=== PATIENT | male | born 1955 | race Caucasian/White ===

== ENCOUNTER 2023-04-22 02:05 | Inpatient (IN) | payer OTHER, SELFPAY ==
[2023-04-22] MEDS ORDERED: FENTANYL CITR 100 MCG/2 ML ONE (03:23)
[2023-04-22 04:11] LABS: Absolute Lymphocytes (CBC) 4.9 K/uL (0.7-4.9); Hematocrit 35.8 % (39.6-49.0); Lymphocytes % 36.7 % (15.3-44.8); MCV 92.5 fL (80-100); MPV 6.8 fL (7.6-11.3); RBC Red Blood Cell Count 3.88 M/uL (4.33-5.43)
[2023-04-22 05:00] LABS: Potassium 3.9 mEq/L (3.5-5.1)
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
[2023-04-22] MEDS ORDERED: NA CHLORIDE 0.9% 1,000 ML ONE (06:30)
[2023-04-22 07:55] LABS: Specific Gravity 1.024 (1.005-1.030); Urine Bacteria None Seen /HPF (<20); Urine Bilirubin NEGATIVE (Negative); Urine Blood Negative (Negative); Urine Clarity Clear (Clear); Urine Color Colorless (Yellow); Urine Glucose NEGATIVE (Negative); Urine Protein NEGATIVE (Negative); Urine RBC <5 /HPF (None Seen); Urine Urobilinogen Normal (Normal); Urine pH 7.5 (5.0-7.0)
[2023-04-22] MEDS ORDERED: ZIPRASIDONE MESYLA 20 MG/VIAL IM ONE (09:52)
[2023-04-22] MEDS ORDERED: WATER FOR INJ,STERILE 10 ML ONE (09:53)
[2023-04-22] MEDS ORDERED: ONDANSETRON 4 MG/2 ML VIAL IV PRN (09:55)
[2023-04-22] MEDS ORDERED: LABETALOL 20 MG/4ML SYRINGE IV PRN (09:55)
[2023-04-22] MEDS: NICOTINE 21 MG/PAT TD SCH (10:00)
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
[2023-04-22] MEDS ORDERED: LORazepam 2 MG/ML VIAL ONE (11:51)
[2023-04-22 13:18] LABS: Magnesium 1.8 mg/dL (1.6-2.4); Phosphorus 3.2 mg/dL (2.5-4.9); Thyroid Stimulating Hormone 2.57 uIU/mL (0.358-3.740)
--- NOTE | 2023-04-22 13:51 | RAD REPORT ---
"EXAM DESCRIPTION: CT Head and Cervical Spine Without Intravenous Contrast CLINICAL HISTORY: The patient is 67 years old and is Male; TRAUMA TECHNIQUE: Axial computed tomography images of the head/brain and cervical spine without intravenous contrast. Sagittal and coronal reformatted images were created and reviewed. This CT exam was pe rformed using one or more of the following dose reduction techniques: automated exposure control, a djustment of the mA and/or kV according to patient size, and/or use of iterative reconstruction techn ique. COMPARISON: No relevant prior studies available. FINDINGS: Brain: Mild nonspecific white matter changes likely related to chronic microvascular isc hemic disease. Mild cerebral atrophy. No hemorrhage. Ventricles: Unremarkable. No ventriculomegaly. Skull: No acute fracture. Sinuses: Unremarkable as visualized. No acute sinusitis. Mastoid air cells: Unremarkable as visualized. No mastoid effusion. Vertebrae: CHEST ABDOMEN PELVIS WITH IV CONTRAST | Head C Spine Cap W Con. Discs/spinal canal/neural foramina: Disc space narrowing with degenerative endplate changes most prominent at C6-7. Moderate left neural foraminal narrowing at C3-4. Soft tissues: 4 cm ovoid right scalp lesion with calcification. * A single impression for all exams can be found at the end of this report EXAM DESCRIPTION: CT Chest, Abdomen and Pelvis With Intravenous Contrast CLINICAL HISTORY: The patient is 67 years old and is Male; TRAUMA TECHNIQUE: Axial computed tomography images of the chest, abdomen and pelvis with intravenous contra st. Sagittal and coronal reformatted images were created and reviewed. This CT exam was performed using one or more of the following dose reduction techniques: automated exposure control, adjustme nt of the mA and/or kV according to patient size, and/or use of iterative reconstruction technique. COMPARISON: No relevant prior studies available. FINDINGS: CHEST: Lungs: Blebs in the left lower lobe. Pleural space: Unremarkable. No significant effusion. No pneumothorax. Heart: Coronary artery calcification. No significant pericardial effusion. ABDOMEN: Liver: 1.5 cm cyst in the left liver. Gallbladder and bile ducts: Unremarkable. No calcified stones. No ductal dilation. Pancreas: Unremarkable. No ductal dilation. No mass. Spleen: Unremarkable. No splenomegaly. Adrenals: Unremarkable. No mass. Kidneys and ureters: Mild bilateral perinephric stranding which may be chronic. No hydronephrosis. No solid mass. Stomach and bowel: Unremarkable. No obstruction. No mucosal thickening. PELVIS: Appendix: No findings to suggest acute appendicitis. Bladder: Unremarkable. No mass. Reproductive: Unremarkable as visualized. CHEST, ABDOMEN and PELVIS: Intraperitoneal space: Small amount of free fluid in the lower pelvis. No free air. Bones/joints: Acute to subacute appearing fractures involving the right posterior 9th and 10th ri bs. Acute to subacute appearing fracture involving the left posterior lateral 9th rib. Chronic appearing left lateral rib fracture. Chronic appearing right posterior rib fractures. Chronic appearing right anterolateral rib fracture. Disc space narrowing with degenerative endplate changes in the spine. No dislocation. Soft tissues: There is a 1.8 x 1.5 x 7 cm fluid collection in the soft tissues of the left thigh/ gluteal region. Just medial to this and contiguous with the left gluteal musculature is another 1.6 x 1.5 x 4.2 cm fluid collection. 1.2 cm subcutaneous cystic lesion in the left chest. Vasculature: Scattered atherosclerotic vascular calcifications. Lymph nodes: Prominent left inguinal lymph node which measures up to 1.1 cm in short axis diamete r. * A single impression for all exams can be found at the end of this report IMPRESSION: CT Head and Cervical Spine Without Intravenous Contrast: No acute intracranial abnormality. No acute findings in the cervical spine. CT Chest, Abdomen and Pelvis With Intravenous Contrast: 1. Acute to subacute appearing fractures involving the right posterior 9th and 10th ribs. 2. Acute to subacute appearing fracture involving the left posterior lateral 9th rib. 3. Mild bilateral perinephric stranding which may be chronic. 4. Small amount of free fluid in the lower pelvis. 5. There is a 1.8 x 1.5 x 7 cm fluid collection in the soft tissues of the left thigh/gluteal regio n. Just medial to this and contiguous with the left gluteal musculature is another 1.6 x 1.5 x 4.2 cm fluid collection. There is some associated regional subcutaneous fat stranding. Correlate with any concern for hematoma or infection/abscess. 6. Additional non-emergent findings as above. Electronically signed by: Gideon Irizarry MD 04/22/2023 7:56 AM CDT Due to temporary technical issues with the PACS/Fluency reporting system, reports are being signed by the in house radiologist without review as a courtesy to ensure prompt reporting. The interpreting r adiologist is fully responsible for the content of the report."
[2023-04-22 15:57] VITALS: BMI 25.0
[2023-04-22] MEDS: HYDROCODONE/APAP 5/325 MG TAB PO PRN (18:54)
[2023-04-22] MEDS: ENOXAPARIN 40 MG/0.4 ML SQ SCH (19:51)
[2023-04-22] MEDS: LORazepam 2 MG/ML VIAL IV PRN (19:51)
[2023-04-22] MEDS ORDERED: HALOPERIDOL LACT 5 MG/ML INJ IM PRN ×2 (20:09→20:36)
--- NOTE | 2023-04-22 20:20 | EKG ---
Test Date: 2023-04-22 Test Time: 02:28:35 Dub Room Engineer: RV MEASUREMENT RESULTS: Intervals: Rate: 95 MD: QRSD: 112 QT: 370 QTc: 464 [place]: P: MD: QRS: 54 T: 78 INTERPRETIVE STATEMENTS: Atrial fib ST & T wave abnormality, consider anterior ischemia Prolonged QT Abnormal ECG No previous ECG available for comparison Electronically Signed On 04-22-23 20:20:23 CDT by Chandler Carter
--- NOTE | 2023-04-22 20:20 | EKG ---
Test Date: 2023-04-22 Test Time: 02:29:03 Coal Gasification Technician: RV MEASUREMENT RESULTS: Intervals: Rate: 96 WI: QRSD: 118 QT: 372 QTc: 469 [place]: P: 236 WI: QRS: 57 T: 125 INTERPRETIVE STATEMENTS: Atrial fib Marked ST abnormality, possible lateral subendocardial injury Abnormal ECG Compared to ECG 04/22/2023 02:28:35 Possible ischemia no longer present Prolonged QT interval no longer present ST (T wave) deviation still present Electronically Signed On 04-22-23 20:19:45 CDT by Chandler Carter
[2023-04-22] MEDS ORDERED: HALOPERIDOL LACT 5 MG/ML INJ IM ONE (20:39)
[2023-04-22] MEDS: ACETAMINOPHEN 325 MG TABLET PO PRN (21:39)
[2023-04-22] MEDS: QUETIAPINE 25 MG TAB PO SCH (22:13)
[2023-04-22 22:29] LABS: Urine Bilirubin NEGATIVE (Negative); Urine Blood Negative (Negative); Urine Clarity Clear (Clear); Urine Color Light-Yellow (Yellow); Urine Glucose NEGATIVE (Negative); Urine Protein NEGATIVE (Negative); Urine Urobilinogen 1+ (Normal); Urine pH 7.5 (5.0-7.0)
[2023-04-22 22:40] LABS: Barbiturates NEGATIVE (NEGATIVE); Benzodiazepines POSITIVE (NEGATIVE); Cocaine NEGATIVE (NEGATIVE); METHAMPHETAM NEGATIVE (NEGATIVE); Methadone NEGATIVE (NEGATIVE); Opiates NEGATIVE (NEGATIVE); Phencyclidine NEGATIVE (NEGATIVE); THC Cannibis POSITIVE (NEGATIVE)
[2023-04-23] MEDS: HYDROCODONE/APAP 5/325 MG TAB PO PRN ×4 (02:34→21:15)
[2023-04-23 03:53] LABS: Absolute Lymphocytes (CBC) 4.9 K/uL (0.7-4.9); Hematocrit 34.7 % (39.6-49.0); Lymphocytes % 38.8 % (15.3-44.8); MCV 91.8 fL (80-100); MPV 6.8 fL (7.6-11.3); RBC Red Blood Cell Count 3.77 M/uL (4.33-5.43)
[2023-04-23 04:00] LABS: Magnesium 1.7 mg/dL (1.6-2.4); Potassium 3.6 mEq/L (3.5-5.1)
[2023-04-23] MEDS ORDERED: MAGNESIUM SULFATE 1 gm IVPB 1 GM/100 ML BAG IV ONE (07:00)
[2023-04-23] MEDS: ASPIRIN 81 MG CHEWABLE TABLET PO SCH (08:02)
[2023-04-23] MEDS: NICOTINE 21 MG/PAT TD SCH (08:02)
[2023-04-23] MEDS: LORazepam 2 MG/ML VIAL IV PRN ×3 (08:06→20:15)
[2023-04-23] MEDS ORDERED: POTASSIUM CL SA 10 MEQ TAB PO ONE (09:00)
[2023-04-23] MEDS: ACETAMINOPHEN 325 MG TABLET PO PRN (13:15)
--- NOTE | 2023-04-23 13:49 | P.PN ---
Subjective Date of Service: 04/23/23 Chief Complaint: AMS Patient appears confused and confabulating. He desires to go home. He has no new complaint. He denies any headache. He finished his meal this morning. Physical Examination - Vital Signs Temperature: 98.8 F Blood Pressure: 141/95 Pulse: 107 Respirations: 24 Pulse Ox (%): 94 Assessment And Plan - Plan Physical Exam General: Alert, In no apparent distress, Oriented x2, Confused HEENT: Atraumatic, PERRLA, Mucous membr. moist/pink, EOMI, Sclerae nonicteric Neck: Supple, 2+ carotid pulse no bruit, No LAD, Without JVD or thyroid abnormality Respiratory: Clear to auscultation bilaterally, Normal air movement Cardiovascular: No edema, Regular rate/rhythm, Normal S1 S2 Gastrointestinal: Normal bowel sounds, Soft and benign, No tenderness Musculoskeletal: No clubbing, No swelling, No tenderness Integumentary: No rashes, No significant lesion, No tenderness/swelling Neurological: Normal speech, Normal strength at 5/5 x4 extr, Normal tone, Normal affect Plan Acute encephalopathy I suspect cognitive deficits-and highly suspicious for alcohol-related dementia CT head unremarkable for any acute intracranial abnormality. UA negative. ammonia unremarkable. UDS positive for benzodiazepine and THC. Patient was given Ativan before toxicology screen was obtained. Continue supportive care. Patient was recently admitted to [facility]. We will obtain medical records. Rib fracture Imaging indicates right posterior ninth, 10th ribs and left posterior ninth rib fracture. Continue supportive care. Left thigh/gluteal hematoma. Noted on CT imaging. Continue supportive care. Nicotine dependence. Patient placed on nicotine patch. Will be counseled on tobacco cessation when fully alert. Leukocytosis. Likely reactive. WBC is trending down. blood cultures: No growth. Anemia of chronic disease. Stable. Hyponatremia. Stable. Continue to monitor sodium levels. DVT prophylaxis: Lovenox subQ
[2023-04-23] MEDS: ENOXAPARIN 40 MG/0.4 ML SQ SCH (16:46)
[2023-04-23] MEDS: QUETIAPINE 25 MG TAB PO SCH (20:15)
[2023-04-23] MEDS: METOPROLOL TAR 50 MG TAB PO SCH (21:15)
[2023-04-24] MEDS ORDERED: HALOPERIDOL LACT 5 MG/ML INJ IV PRN (00:28)
[2023-04-24] MEDS: HYDROCODONE/APAP 5/325 MG TAB PO PRN ×3 (03:20→21:39)
[2023-04-24 04:07] LABS: Potassium 4.2 mEq/L (3.5-5.1)
[2023-04-24 04:23] VITALS: O2SAT 96
[2023-04-24] MEDS: NICOTINE 21 MG/PAT TD SCH (09:28)
[2023-04-24] MEDS: METOPROLOL TAR 50 MG TAB PO SCH ×2 (09:28→21:38)
[2023-04-24] MEDS: ASPIRIN 81 MG CHEWABLE TABLET PO SCH (09:28)
[2023-04-24] MEDS: LORazepam 2 MG/ML VIAL IV PRN ×2 (13:20→19:51)
--- NOTE | 2023-04-24 13:59 | P.PN ---
Subjective Date of Service: 04/24/23 Chief Complaint: AMS Patient has no new complain. He is awake, alert and oriented x2. He recognized his friend who came to his bedside. Patient had been telling stories about being in [place] but his friend denied that. It appears she has been confabulating. He is needing a cane to ambulate. Physical Examination - Vital Signs Temperature: 97.8 F Blood Pressure: 122/94 Pulse: 109 Respirations: 14 Pulse Ox (%): 92 Assessment And Plan - Plan Physical Exam General: Alert, In no apparent distress, Oriented x2, Confused Neck: Supple, Without JVD or thyroid abnormality Respiratory: Clear to auscultation bilaterally, Normal air movement Cardiovascular: No edema, Regular rate/rhythm, Normal S1 S2 Gastrointestinal: Normal bowel sounds, Soft and benign, No tenderness Musculoskeletal: No clubbing, No swelling, No tenderness Integumentary: No rashes, No significant lesion, No tenderness/swelling Neurological: Normal speech, Normal strength at 5/5 x4 extr, Normal tone, Normal affect Plan Acute encephalopathy cognitive deficits-and highly suspicious for alcohol-related dementia, Warnicke's encephalopathy. CT head unremarkable for any acute intracranial abnormality. UA negative. ammonia unremarkable. UDS positive for benzodiazepine and THC. Patient was given Ativan before toxicology screen was obtained. Continue supportive care. Patient was recently admitted to [facility]. Occupational Therapy to assess patient's ADLs and IADLs. Neurology consulted to evaluate. Rib fracture Imaging indicates right posterior ninth, 10th ribs and left posterior ninth rib fracture. Continue supportive care. Left thigh/gluteal hematoma. Noted on CT imaging. Continue supportive care. Nicotine dependence. Patient placed on nicotine patch. Leukocytosis. Likely reactive. Anemia of chronic disease. Stable. Hyponatremia. Stable. Continue to monitor sodium levels. DVT prophylaxis: Lovenox subQ
[2023-04-24] MEDS ORDERED: LORazepam 2 MG/ML VIAL IV ONE (17:16)
[2023-04-24] MEDS: ENOXAPARIN 40 MG/0.4 ML SQ SCH (18:56)
--- NOTE | 2023-04-24 21:14 | RAD REPORT ---
EXAM DESCRIPTION: MRI - Brain W/Wo Cont - 04/24/2023 8:54 pm CLINICAL HISTORY: AMS Headache, drowsiness COMPARISON: No comparisons TECHNIQUE: Multi-sequence, multiplanar MR imaging of the brain was performed with contrast. FINDINGS: No intracranial hemorrhage, hydrocephalus, or extra-axial fluid collection.Minimal chronic microvascular ischemic changes. Moderate generalized brain atrophy. No edema or shift of midline str uctures. No intracranial mass. DWI is negative for acute CVA. The midline structures are normally formed. Mastoid air cells and paranasal sinuses are clear. Post-contrast images show no abnormal enhancement to suggest tumor or infection. IMPRESSION: No acute or concerning intracranial abnormalities. No pathologic post-contrast enhancement suspected.
[2023-04-24] MEDS: QUETIAPINE 25 MG TAB PO SCH (21:38)
[2023-04-25] MEDS: LORazepam 2 MG/ML VIAL IV PRN ×2 (01:35→08:14)
[2023-04-25] MEDS: HYDROCODONE/APAP 5/325 MG TAB PO PRN ×3 (06:17→14:40)
[2023-04-25 07:45] LABS: Magnesium 1.7 mg/dL (1.6-2.4)
[2023-04-25] MEDS: ASPIRIN 81 MG CHEWABLE TABLET PO SCH (08:12)
[2023-04-25] MEDS: METOPROLOL TAR 50 MG TAB PO SCH (08:13)
[2023-04-25] MEDS: NICOTINE 21 MG/PAT TD SCH (08:14)
[2023-04-25] MEDS: ACETAMINOPHEN 325 MG TABLET PO PRN (11:22)
[2023-04-25] MEDS ORDERED: LORAZEPAM 1 MG TABLET PO PRN (13:53)
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
[2023-04-25] MEDS ORDERED: HYDROCODONE/APAP 5/325 MG TAB PO ONE (14:45)
[2023-04-25] MEDS: ENOXAPARIN 40 MG/0.4 ML SQ SCH (16:23)
[2023-04-25 16:25] VITALS: BP 118/75; TEMP 97.9
== END 2023-04-25 19:08 | disposition home or self-care (01) | DRG 897 ==
LOC: ER 02:05
PROVIDERS: ADMIT Internal Medicine; ATTEND Internal Medicine
DX: F10.97 Alcohol use, unspecified with alcohol-induced persisting dementia (principal); S22.41XA Multiple fractures of ribs, right side, initial encounter for closed fracture; E51.2 Wernicke's encephalopathy; E87.1 Hypo-osmolality and hyponatremia; K59.00 Constipation, unspecified; D63.8 Anemia in other chronic diseases classified elsewhere; D72.820 Lymphocytosis (symptomatic); S70.12XA Contusion of left thigh, initial encounter; F17.200 Nicotine dependence, unspecified, uncomplicated; R03.0 Elevated blood-pressure reading, without diagnosis of hypertension; R41.89 Other symptoms and signs involving cognitive functions and awareness; Z71.6 Tobacco abuse counseling; Z79.899 Other long term (current) drug therapy; Y90.0 Blood alcohol level of less than 20 mg/100 ml
CPT/HCPCS: 36415; 70450; 70553; 71260; 72125; 74177; 80048; 80061; 80143; 80179; 80307; 81001; 81003; 82077; 82140; 82550; 83036; 83735; 83930; 83935; 84100; 84132; 84295; 84300; 84439; 84443; 85025; 86850; 86900; 86901; 87040; 93005; 96361; 96372; 96374; 96375; 97161; 97165; 99285; A9577; J1630; J1650; J3010; J3475; J3486; J7030; Q9967